=== PATIENT | female | born 1930 | race Caucasian/White ===

== ENCOUNTER → 2018-04-08 | Outpatient (CLI) | payer MEDICARE ==
--- NOTE | 2018-04-08 18:01 | US ---
EXAMINATION TYPE: US venous doppler duplex LE LT DATE OF EXAM: 04/08/2018 5:40 PM COMPARISON: NONE CLINICAL HISTORY: R60.0 Localized edema of left lower leg. Posterior knee pain, no hx of blood clots. On blood thinners. No redness. SIDE PERFORMED: Left TECHNIQUE: The lower extremity deep venous system is examined utilizing real time linear array sonog bre with graded compression, doppler sonography and color-flow sonography. VESSELS IMAGED: External Iliac Vein (EIV) Common Femoral Vein Deep Femoral Vein Greater Saphenous Vein * Femoral Vein Popliteal Vein Small Saphenous Vein * Proximal Calf Veins (* superficial vessels) Left Leg: Negative for DVT. Posterior knee, fluid collection seen with internal echoes = 3.6 x 2.0 x 1.1 cm. Superficial edema seen posterior knee. IMPRESSION: No evidence of deep venous thrombosis. There is irregular 4 x 1 cm popliteal cyst.
--- NOTE | 2018-04-08 18:15 | XR ---
EXAMINATION TYPE: XR knee complete LT DATE OF EXAM: 04/08/2018 COMPARISON: NONE HISTORY: Knee pain TECHNIQUE: 3 views FINDINGS: There is calcification of the menisci. I see no fracture nor dislocation. There is a minute joint effusion. There is slight narrowing of the joint spaces. IMPRESSION: Chondrocalcinosis. Small joint effusion. No fracture seen.
== END | disposition home or self-care (01) ==
LOC: RADUSMAIN 17:13
PROVIDERS: ATTEND Physician Assistant
DX: R60.0 Localized edema (principal); M71.22 Synovial cyst of popliteal space [Baker], left knee; M11.262 Other chondrocalcinosis, left knee